=== PATIENT | female | born 1960 | race Caucasian/White ===

== ENCOUNTER 2022-04-25 17:14 | Emergency (ER) | payer OTHER, SELFPAY ==
[2022-04-25 17:24] VITALS: BP 149/90; PULSE 72; RESP 16; TEMP 36.7; O2SAT 97
[2022-04-25 19:22] VITALS: BP 123/76; PULSE 74; RESP 17; O2SAT 98
[2022-04-25 20:33] VITALS: BP 143/76; PULSE 73; RESP 16; O2SAT 97
[2022-04-25] MEDS: vancomycin 1,000 MG in sodium chloride 0.9% 250 ML 250 MG IV (20:34)
[2022-04-25] MEDS: clindamycin 150 mg Capsule 300 MG PO (20:35)
[2022-04-25 21:07] LABS: Basophils % 0.4 %; Eosinophils # 0.3 10^3/uL (0.0-0.8); Eosinophils % 2.7 %; Hematocrit 41.1 % (37.0-47.0); Hemoglobin 13.1 g/dL (11.5-15.3); Lymphocytes # 2.3 10^3/uL (0.8-4.8); Lymphocytes % 22.5 %; Mean Corpuscular HGB Conc 31.9 g/dL (30.0-36.0); Mean Corpuscular Volume 97.2 fl (81-99); Mean Platelet Volume 10.5 fL (7.4-10.4); Monocytes % 9.5 %; Neutrophils # 6.54 10^3/uL (1.8-7.7); Neutrophils % 64.6 %; Nucleated Red Blood Cells % 0 %; Platelet Count 208 10^3/cmm (130-400); Red Blood Count 4.23 10^6/uL (4.1-5.3); Red Cell Distribution Width 13.2 % (12.1-15.1); White Blood Count 10.1 10^3/uL (4.0-10.0)
--- NOTE | 2022-04-25 21:25 | ED_ITS ---
HPI - Wound/Laceration General: Chief Complaint: Wound/Laceration Stated Complaint: Sent from , post surgery infection Time Seen by Provider: 04/25/22 19:43 History of Present Illness: 61-year-old female presents with warmth and erythema around a postsurgical incision site. Patient reports that she had a lymph node removed in her left groin about 4 weeks ago. That she had a sera navya. However she now has quite a bit of redness and warmth to the area. There is some firmness but no fluctuance. She feels that she has had some chills and been febrile. Associated symptoms: Reports chills and fever(s); Denies nausea or vomiting Review of Systems Const: Reports: fever(s) and chills; Denies: body aches or fatigue Card: Denies: chest pain or palpitations Resp: Denies: dyspnea or productive cough GI: Denies: abdominal pain, nausea or vomiting : Denies: flank pain or dysuria Musc: Reports: extremity pain; Denies: back pain or extremity swelling Skin/Breast: Reports: erythema Neuro: Denies: headache(s) or dizziness Psych: Denies: anxiety or depression Physical Exam Const: COMMON NORMALS: no acute distress, patient oriented x3 and alert Resp: COMMON NORMALS: normal respiratory effort, No use of accessory muscles and clear to auscultation bilaterally AUSCULTATION: clear to auscultation bilaterally Cardio: COMMON NORMALS: regular rate and regular rhythm RATE: regular rate RHYTHM: regular rhythm GI: COMMON NORMALS: Soft to palpation and non-tender PALPATION: Yes Soft to palpation Extremity: NARRATIVE EXTREMITY EXAM: Erythematous and warmth around incision site left groin Neuro: COMMON NORMALS: patient oriented x3 and no focal motor deficits SENSORIUM/ORIENTATION: Yes alert Psych: COMMON NORMALS: mental status grossly normal, Normal thought process present and cooperative THOUGHT PROCESS: Normal thought process present Skin: NARRATIVE SKIN EXAM: Cellulitis to the left groin, there is some induration but no palpable abscess over the post surgical incision site. Course Vital Signs: Vital signs: Vital Signs Temperature 98.0 F 04/25/22 17:24 Pulse Rate 73 04/25/22 20:33 Respiratory Rate 16 04/25/22 20:33 Blood Pressure 143/76 04/25/22 20:33 Pulse Oximetry 97 04/25/22 20:33 Oxygen Delivery Me thod 04/25/22 20:33 MDM - Wound/Laceration Medical Decision Making Patient given IV antibiotics in the ER. There is no palpable fluctuance. There is some induration likely related to the hematoma that she reports that she had had there since the surgery. I will start her on doxycycline. She should follow with her primary care provider return to the ER if symptoms worsen. Lab Data : 04/25/22 20:52 04/25/22 20:16 Laboratory Results WBC 10.1 10^3/uL (4.0-10.0) H 04/25/22 20:52 Corrected WBC Cancelled 04/25/22 20:16 RBC 4.23 10^6/uL (4.1-5.3) 04/25/22 20:52 Hgb 13.1 g/dL (11.5-15.3) 04/25/22 20:52 Hct 41.1 % (37.0-47.0) 04/25/22 20:52 MCV 97.2 fl (81-99) 04/25/22 20:52 MCH 31.0 pg (28.0-34.0) 04/25/22 20:52 MCHC 31.9 g/dL (30.0-36.0) 04/25/22 20:52 RDW 13.2 % (12.1-15.1) 04/25/22 20:52 Plt Count 208 10^3/cmm (130-400) 04/25/22 20:52 MPV 10.5 fL (7.4-10.4) H 04/25/22 20:52 Gran % Cancelled 04/25/22 20:16 Neut % (Auto) 64.6 % 04/25/22 20:52 Lymph % (Auto) 22.5 % 04/25/22 20:52 [place]atte % (Auto) 9.5 % 04/25/22 20:52 Eos % (Auto) 2.7 % 04/25/22 20:52 Baso % (Auto) 0.4 % 04/25/22 20:52 Neut # (Auto) 6.54 10^3/uL (1.8-7.7) 04/25/22 20:52 Lymph # (Auto) 2.3 10^3/uL (0.8-4.8) 04/25/22 20:52 Platte # (Auto) 1.0 10^3/uL (0.2-0.9) H 04/25/22 20:52 Eos # (Auto) 0.3 10^3/uL (0.0-0.8) 04/25/22 20:52 Baso # (Auto) 0.0 10^3/uL (0.0-0.1) 04/25/22 20:52 Absolute Gran (auto) Cancelled 04/25/22 20:16 Nucleated RBC % (auto) 0 % 04/25/22 20:52 Nucleated RBCs # 0.0 /100WBC 04/25/22 20:52 Sodium Cancelled 04/25/22 20:16 Potassium Cancelled 04/25/22 20:16 Chloride Cancelled 04/25/22 20:16 Carbon Dioxide Cancelled 04/25/22 20:16 Anion Gap Cancelled 04/25/22 20:16 BUN Cancelled 04/25/22 20:16 Creatinine Cancelled 04/25/22 20:16 GFR Calculation Cancelled 04/25/22 20:16 Glucose Cancelled 04/25/22 20:16 Calculated Osmolality Cancelled 04/25/22 20:16 Calcium Cancelled 04/25/22 20:16 Discharge Plan Discharge Condition: Stable Prescriptions: No Action escitalopram oxalate [Lexapro] 10 mg tablet 10 mg PO DAILY Vitamin D2 10 mcg (400 unit) Tablet 20 mcg PO DAILY [place] 0.05 mg/24 hr Patch Semiweekly See Rx Instructions .ROUTE .COMPLEX Rx Instructions: 0.05 mg transdermally MONDAY AND MONDAY Calcium 600 600 mg calcium (1,500 mg) Tablet 600 mg PO DAILY CoQ-10 100 mg Capsule 100 mg PO DAILY Fish Oil 100-160-1,000 mg Capsule 1 cap PO DAILY Elderberry Zinc Vit C 90-15 mg Lozenge 2 joanna PO DAILY Coding Level of Care Code ED Pantograph Setter for Chg Fwd Exam Detailed
[2022-04-25 22:25] VITALS: BP 119/65; PULSE 81; RESP 18; O2SAT 97
== END 2022-04-25 22:28 | disposition home or self-care (01) ==
PROVIDERS: Emergency Provider Student in an Organized Health Care Education/Training Program
DX: T81.41XA Infection following a procedure, superficial incisional surgical site, initial encounter (principal)
CPT/HCPCS: 36415; 85025; 87040; 96365; 99284; J3370; J7050